=== PATIENT | female | born 1995 | race Caucasian/White ===

== ENCOUNTER → 2017-07-27 | Outpatient (CLI) | payer MEDICAID ==
[2015-07-21 18:41] VITALS: BP 130/88
[~2017-07-27] MED LIST: AUGMENTIN 875-1 EAC1 PO; KETOROLAC TROME10 MG PO; NORCO 325 MG-51 TA1 PO; RT ALBUTEROL CC18 GM IH
== END ==
LOC: LAB 09:34
DX: Z01.419 Encounter for gynecological examination (general) (routine) without abnormal findings (principal); N91.2 Amenorrhea, unspecified; Z72.51 High risk heterosexual behavior; F41.8 Other specified anxiety disorders; E66.01 Morbid (severe) obesity due to excess calories